=== PATIENT | female | born 1975 | race African-American/Black ===

== ENCOUNTER 2016-08-15 20:56 | Emergency (ER) | payer OTHER ==
[~2016-08-15 20:56] MED LIST: BENZONATATE PO; IBUPROFEN800 MG PO; LEVAQUIN750 M1 PO; NO MEDICATIONS
== END 2016-08-15 21:10 | disposition home or self-care (01) ==
LOC: SED 20:56
DX: M54.12 Radiculopathy, cervical region (principal); I10 Essential (primary) hypertension; F41.9 Anxiety disorder, unspecified; F32.9 Major depressive disorder, single episode, unspecified
CPT/HCPCS: 96372; 99283; J1040